=== PATIENT | female | born 1985 | race Caucasian/White ===

== ENCOUNTER 2017-12-09 20:01 | Emergency (ER) | payer MEDICAID ==
[~2017-12-09] VITALS: Ht 154.9 cm; Wt 43.0 kg
[~2017-12-09 20:01] MED LIST: NO HOME MEDS
[2017-12-09 21:09] VITALS: BP 130/88
== END 2017-12-09 21:40 | disposition home or self-care (01) ==
LOC: ER 20:02
DX: G47.00 Insomnia, unspecified (principal); G89.29 Other chronic pain; Z90.49 Acquired absence of other specified parts of digestive tract
CPT/HCPCS: 99281

== ENCOUNTER 2023-06-01 20:08 | Emergency (ER) | payer MEDICAID ==
[~2023-06-01] VITALS: Ht 154.9 cm; Wt 68.2 kg
[2023-06-01 20:12] VITALS: BP 125/82; PULSE 78; RESP 18; TEMP 97.9; O2SAT 99
== END 2023-06-01 20:54 ==
LOC: ER 20:09
DX: Z98.890 Other specified postprocedural states; V49.88XA Car occupant (driver) (passenger) injured in other specified transport accidents, initial encounter; Y93.89 Activity, other specified; Y92.89 Other specified places as the place of occurrence of the external cause; Y99.8 Other external cause status
CPT/HCPCS: 99283